=== PATIENT | male | born 1975 | race Caucasian/White ===

== ENCOUNTER 2019-04-05 18:15 | Emergency (ER) | payer OTHER ==
[~2019-04-05] VITALS: Ht 185.4 cm; Wt 79.4 kg
[2019-04-05] MEDS ORDERED: BUTALB-APAP-CA1 EACH PO (19:05)
[2019-04-05 19:13] VITALS: BP 142/79
== END 2019-04-05 19:13 | disposition home or self-care (01) ==
LOC: M.ERS 18:15
DX: F07.81 Postconcussional syndrome (principal)

== ENCOUNTER 2019-11-01 12:22 | Emergency (ER) | payer OTHER ==
[~2019-11-01] VITALS: Ht 185.4 cm; Wt 78.9 kg
[~2019-11-01 12:22] MED LIST: BUTALB-APAP-CA1 EACH PO
[2019-11-01 13:41] LABS: ABSOLUTE BASOPHILS 0.1 thou/uL (0.0-0.2); ABSOLUTE LYMPHOCYTES 1.7 thou/uL (0.8-5.3); ABSOLUTE MONOCYTES 0.6 thou/uL (0.0-1.2); BASOPHILS 0.7 %; EOSINOPHILS 0.2 %; HEMATOCRIT 44.3 % (42.0-52.0); HEMOGLOBIN 14.7 gm/dL (14.0-18.0); LYMPHOCYTES 17.8 %; MCH 28.6 pg (26.0-34.0); MCHC 33.3 g/dL (28.0-37.0); MCV 85.9 fL (80.0-100.0); MONOCYTES 6.1 %; MPV 6.9 fl. (7.2-11.1); NUCLEATED RBCS 0 /100WBC; PLATELET COUNT* 366 thou/uL (150-400); POLYS 75.2 %; RBC 5.15 mil/uL (4.50-6.00); WBC 9.3 thou/uL (4.0-11.0)
[2019-11-01 14:08] LABS: ALBUMIN 3.6 g/dL (3.4-5.0); CALCIUM 9.2 mg/dL (8.5-10.1); CREATININE 0.9 mg/dL (0.6-1.3); MAGNESIUM 1.7 mg/dL (1.8-2.4); POTASSIUM 4.1 mmol/L (3.5-5.1); TOTAL BILIRUBIN 0.7 mg/dL (<0.1-1.0)
[2019-11-01 14:36] LABS: URINE BILIRUBIN NEGATIVE (Negative); URINE BLOOD TRACE (Negative); URINE CLARITY CLEAR; URINE COLOR YELLOW; URINE GLUCOSE-RANDOM NEGATIVE (Negative); URINE KETONES 2+ (Negative); URINE LEUKOCYTES-REFLEX NEGATIVE (Negative); URINE NITRITE-REFLEX NEGATIVE (Negative); URINE PROTEIN TRACE (Negative); URINE SPECIFIC GRAVITY 1.015 (1.005-1.030); URINE UROBILINOGEN 0.2 E.U./dl (0.2-1.0)
[2019-11-01 15:33] VITALS: BP 141/81
--- NOTE | 2019-11-01 18:20 | EKG ---
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1975 Requested By: Avni Guan Order Number: [id number] MD: Gagan Carranza Measurements Intervals [place] Rate: 83 P: 79 PA: 141 QRS: -43 QRSD: 83 T: 58 QT: 354 QTc: 416 Interpretive Statements Sinus rhythm Left axis deviation Baseline wander in lead(s) V4,V6 Compared to ECG 09/26/2012 17:54:17 Sinus arrhythmia no longer present Electronically Signed On 11-01-2019 18:19:15 CDT by Gagan Carranza [email or web address] <ELECTRONICALLY SIGNED> By: Gagan Carranza MD, FACC 11/01/19 1819 1230 1230 Gagan Carranza MD, [facility] /EPI
--- NOTE | 2019-11-01 18:21 | EKG ---
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 : 1975 Requested By: Avni Guan Order Number: [id number] MD: Gagan Carranza Measurements Intervals [place] Rate: 67 P: 150 ME: 148 QRS: -30 QRSD: 86 T: 153 QT: 387 QTc: 409 Interpretive Statements Sinus or ectopic atrial rhythm Probable left atrial enlargement Left axis deviation Low voltage, extremity leads Nonspecific T abnormalities, lateral leads ST elev, probable normal early repol pattern Lead(s) II were not used for morphology analysis Compared to ECG 11/01/2019 12:30:01 Ectopic atrial rhythm now present Low QRS voltage now present T-wave abnormality now present Sinus rhythm no longer present Electronically Signed On 11-01-2019 18:20:21 CDT by Gagan Carranza [email or web address] <ELECTRONICALLY SIGNED> By: Gagan Carranza MD, [facility] 11/01/19 1820 151 Gagan Carranza MD, [facility] /EPI
--- NOTE | 2019-11-01 18:21 | EKG ---
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1975 Requested By: Avni Guan Order Number: [id number] Darrius MD: Gagan Carranza Measurements Intervals [place] Rate: 62 P: 73 TN: 147 QRS: -19 QRSD: 85 T: 36 QT: 401 QTc: 408 Interpretive Statements Sinus rhythm Borderline left axis deviation Borderline low voltage, extremity leads ST elev, probable normal early repol pattern Compared to ECG 11/01/2019 15:14:25 Ectopic atrial rhythm no longer present T-wave abnormality no longer present ST (T wave) deviation still present Electronically Signed On 11-01-2019 18:20:24 CDT by Gagan Carranza [email or web address] <ELECTRONICALLY SIGNED> By: Gagan Carranza MD, FAC 11/01/19 1820 1522 1522 Gagan Carranza MD, [facility] /EPI
== END 2019-11-01 15:34 | disposition home or self-care (01) ==
LOC: M.ERS 12:22
PROVIDERS: Emergency Medicine Emergency Medical Services
DX: R07.89 Other chest pain (principal)